=== PATIENT | female | born 1990 | race Two or more races ===

== ENCOUNTER 2021-08-22 10:22 | Day surgery (SDC) | payer OTHER ==
[~2021-08-22 10:22] MED LIST: NECON 0.5-35-21 EACH PO
== END 2021-08-23 03:00 | disposition home or self-care (01) ==
LOC: CIR.AMB 10:22
PROVIDERS: ATTEND Obstetrics & Gynecology
DX: N84.0 Polyp of corpus uteri (principal); Z20.822 Contact with and (suspected) exposure to COVID-19

== ENCOUNTER 2022-08-07 11:37 | Emergency (ER) | payer OTHER ==
[~2022-08-07] VITALS: Ht 162.6 cm; Wt 87.1 kg
== END 2022-08-07 20:27 | disposition home or self-care (01) ==
LOC: ER 11:37
DX: T83.32XA Displacement of intrauterine contraceptive device, initial encounter (principal); R10.2 Pelvic and perineal pain